=== PATIENT | male | born 1955 | race Caucasian/White ===

== ENCOUNTER 2018-07-30 08:06 | Inpatient (IN) | payer OTHER ==
[2018-07-30 08:40] LABS: CHLORIDE,CL 106 mEq/L (98-106); SODIUM,NA 144 mEq/L (136-145)
[2018-07-30] MEDS ORDERED: Iopamidol 755 Mg/ML 100 ML Bottle IVPUSH ONE (09:34)
[2018-07-30] MEDS ORDERED: Magnesium Hydroxide 400 MG/5 ML Susp 30 ML Cup PO PRN (13:19)
[2018-07-30] MEDS ORDERED: Albuterol/Ipratropium 3.0-0.5 MG/3 ML Neb Soln NEB PRN (13:19)
[2018-07-30] MEDS ORDERED: Temazepam 15 MG Cap PO PRN (13:19)
[2018-07-30] MEDS ORDERED: Acetaminophen 325 MG Tab PO PRN (13:19)
[2018-07-30] MEDS ORDERED: methylPREDNISolone Sodium Succinate 125 MG/2 ML SDV IVPUSH SCH (14:30)
[2018-07-30] MEDS: Sodium Chloride 0.9% 1,000 ML IV SCH (15:13)
[2018-07-30] MEDS: Enoxaparin 40 MG/0.4 ML Syringe SUBCUT SCH (15:14)
[2018-07-30] MEDS: methylPREDNISolone Sodium Succinate 125 MG/2 ML SDV IVPUSH SCH (15:53)
[2018-07-30] MEDS: Famotidine 20 MG Tab PO SCH (19:31)
[2018-07-31] MEDS: Sodium Chloride 0.9% 1,000 ML IV SCH ×2 (04:28→16:12)
[2018-07-31] MEDS: Aspirin 81 MG Tab.EC PO SCH (07:21)
[2018-07-31] MEDS: Famotidine 20 MG Tab PO SCH ×2 (07:21→19:45)
[2018-07-31] MEDS: Potassium Chloride 10 MEQ Tab.ER PO SCH (07:21)
[2018-07-31] MEDS: Naproxen 500 MG Tab PO SCH (07:22)
[2018-07-31 09:09] LABS: CHLORIDE,CL 109 mEq/L (98-106); SODIUM,NA 143 mEq/L (136-145)
--- NOTE | 2018-07-31 09:48 | PCM.PN ---
- General Info Date of Service: 07/31/18 Admission Dx/Problem (Free Text): Hypotension Functional Status: Reports: Pain Controlled, Ambulating. Denies: Tolerating Diet - Review of Systems General: Reports: Weakness, Fatigue, Malaise. Denies: Fever HEENT: Reports: No Symptoms Pulmonary: Reports: Cough. Denies: Shortness of Breath, Wheezing Cardiovascular: Denies: Chest Pain, Edema, Lightheadedness Gastrointestinal: Denies: Abdominal Pain, Nausea, Vomiting Genitourinary: Reports: No Symptoms Musculoskeletal: Reports: No Symptoms Skin: Reports: No Symptoms Neurological: Reports: Weakness. Denies: Dizziness, Syncope - Patient Data Vitals - Most Recent: Last Vital Signs Temp 96.6 F 07/31/18 07:28 Pulse 68 07/31/18 07:28 Resp 18 07/31/18 07:28 BP 118/78 07/31/18 07:28 Pulse Ox 97 07/31/18 07:28 Weight - Most Recent: 203 lb 11.2 oz I&O - Last 24 Hours: Intake & Output 07/30/18 07/31/18 07/31/18 22:59 06:59 14:59 Intake Total 994 Balance 994 Lab Results Last 24 Hours: Laboratory Results - last 24 hr 07/31/18 07/31/18 Range/Units 08:45 08:45 WBC 7.5 (5.0-10.0) 10^3/uL RBC 4.59 (4.50-6.00) 10^6/uL Hgb 14.1 (14.0-18.0) g/dL Hct 41.3 (40.0-54.0) % MCV 90.0 (82.0-94.0) fL MCH 30.7 (27.0-32.0) pg MCHC 34.1 (33.0-38.0) g/dL RDW Coeff of Abel 13.1 (11.0-15.0) % Plt Count 126 L (150-400) 10^3/uL Neut % (Auto) 87.6 H (35-85) % Lymph % (Auto) 7.9 L (10-55) % [place] % (Auto) 4.3 (0-16) % Eos % (Auto) 0.1 (0-5) % Baso % (Auto) 0.1 (0-3) % Neut # (Auto) 6.54 (1.80-7.00) 10^3/uL Lymph # (Auto) 0.59 L (1.00-4.80) 10^3/uL [place] # (Auto) 0.32 (0.00-0.80) 10^3/uL Eos # (Auto) 0.01 (0.00-0.45) 10^3/uL Baso # (Auto) 0.01 10^3/uL Sodium 143 (136-145) mEq/L Potassium 4.2 D (3.5-5.0) mEq/L Chloride 109 H (98-106) mEq/L Carbon Dioxide 24 (21-32) mmol/L BUN 27 H (7-18) mg/dL Creatinine 1.1 (0.7-1.3) mg/dL Est Cr Clr Drug Dosing 75.11 mL/min Estimated GFR (MDRD) > 60 (>=60) mL/min Glucose 122 H (75-99) mg/dL Calcium 8.6 (8.4-10.1) mg/dL C-Reactive Protein 4.7 H (0.2-0.8) mg/dL Kaz Results Last 24 Hours: Microbiology 07/30/18 08:12 Influenza Type A Antigen Screen - Final Nasal, Unspecified NEGATIVE INFLUENZA A VIRUS AG Influenza Type B Antigen Screen - Final NEGATIVE INFLUENZA B VIRUS AG Med Orders - Current: Current Medications Acetaminophen (Tylenol) 650 mg PO Q4H PRN PRN Reason: Mild pain/fever Albuterol/Ipratropium (Duoneb 3.0-0.5 Mg/3 Ml) 3 ml NEB Q4H PRN PRN Reason: Shortness Of Breath/wheezing Aspirin (Halfprin) 81 mg PO DAILY [facility] Last Admin: 07/31/18 07:21 Dose: 81 mg Enoxaparin Sodium (Lovenox) 40 mg SUBCUT DAILY@1600 [facility] Last Admin: 07/30/18 15:14 Dose: 40 mg Famotidine (Pepcid) 20 mg PO BID [facility] Last Admin: 07/31/18 07:21 Dose: 20 mg Sodium Chloride (Normal Saline) 1,000 mls @ 75 mls/hr IV ASDIRECTED [facility] Last Admin: 07/31/18 04:28 Dose: 75 mls/hr Magnesium Hydroxide (Milk Of Magnesia) 30 ml PO Q12H PRN PRN Reason: Constipation Methylprednisolone Sodium Succinate (Solu-Medrol) 62.5 mg IVPUSH DAILY@1200 [facility] Last Admin: 07/30/18 15:53 Dose: 62.5 mg Naproxen (Naprosyn) 500 mg PO DAILY [facility] Last Admin: 07/31/18 07:22 Dose: 500 mg Potassium Chloride (Klor-Con 10) 20 meq PO DAILY [facility] Last Admin: 07/31/18 07:21 Dose: 20 meq Temazepam (Restoril) 15 mg PO BEDTIME PRN PRN Reason: Sleep Discontinued Medications Iopamidol (Isovue-370 (76%)) 100 ml IVPUSH ONETIME ONE Stop: 07/30/18 09:35 Last Admin: 07/30/18 10:16 Dose: 100 ml Methylprednisolone Sodium Succinate (Solu-Medrol) 62.5 mg IVPUSH 0800,1600 [facility] Last Admin: 07/30/18 14:59 Dose: Not Given - Exam General: Alert, Oriented HEENT: Mucous Membr. Moist/[place] Neck: Supple Lungs: Clear to Auscultation, Normal Respiratory Effort Cardiovascular: Regular Rate, Regular Rhythm GI/Abdominal Exam: Normal Bowel Sounds, Soft, Non-Tender Extremities: Normal Inspection, No Pedal Edema Skin: Warm, Dry Neurological: No New Focal Deficit - Problem List & Annotations (1) Hypotension SNOMED Code(s): 47693061 Code(s): I95.9 - HYPOTENSION, UNSPECIFIED Status: Acute Priority: High Current Visit: Yes - Problem List Review Problem List Initiated/Reviewed/Updated: Yes - Assessment Assessment:: Hypotension Cough - Plan Plan:: Patient states "feel no different today". Continues to complain of generalized malaise and weakness. Does admit that the cough has improved with the steroids. Blood pressure is normal today but all meds have been on hold. States has no appetite, ate none of his breakfast. Labs are all improved, potassium up to 4.2 today. CRP improved down to 4.7. Advised would discuss all blood pressure meds with Dr. Brown as currently takes 5 different meds and his blood pressure was very low yesterday. Patient refuses this and states "we will not discuss those or do anything with those here, will address with Dr. Mireles on his discharge". Will continue to watch his pressures today. Possible discharge home tomorrow.
[2018-07-31] MEDS: methylPREDNISolone Sodium Succinate 125 MG/2 ML SDV IVPUSH SCH (11:57)
[2018-07-31] MEDS: Enoxaparin 40 MG/0.4 ML Syringe SUBCUT SCH (16:07)
[2018-08-01] MEDS: Sodium Chloride 0.9% 1,000 ML IV SCH (06:55)
[2018-08-01] MEDS: Naproxen 500 MG Tab PO SCH (07:50)
[2018-08-01] MEDS: Famotidine 20 MG Tab PO SCH (07:50)
[2018-08-01] MEDS: Aspirin 81 MG Tab.EC PO SCH (07:51)
[2018-08-01] MEDS: Potassium Chloride 10 MEQ Tab.ER PO SCH (07:51)
[2018-08-01] MEDS ORDERED: Atenolol 25 MG Tab PO SCH (08:45)
[2018-08-01] MEDS ORDERED: Hydrochlorothiazide/Triamterene 25-37.5 MG Cap PO SCH (08:45)
[2018-08-01] MEDS ORDERED: Losartan 100 MG Tab PO SCH (08:45)
[2018-08-01] MEDS: methylPREDNISolone Sodium Succinate 125 MG/2 ML SDV IVPUSH SCH (11:44)
[2018-08-01 11:46] VITALS: BP 135/84
--- NOTE | 2018-08-04 20:33 | PCM.DCSUM1 ---
Discharge Summary - Hospital Course Free Text/Narrative:: Patient presented to the clinic to see Iza for shortness of breath. Had been ill for over 2 weeks. Initially seen Smita Carrillo on July 15 and was placed on Ceftin. Stopped the medication as he felt it "knocked him out". He followed up with Dr. Mireles and was given injections of Depo Medrol and Rocephin and started on Levaquin. Thought he was getting better but for the last few days prior to admission, has felt more and more short of breath and weak. Blood pressure was noted to be low in the clinic. He is on 5 different blood pressure pills and relates that when he gets ill, his blood pressure drops and he will have to stop all of his medications. D-Dimer elevated at 2.01. CTA of chest done and was negative. CRP 9.0. WBC normal. Admitted for IV fluids. Blood pressure pills held. Diagnosis: Stroke: No Modified [place] Scale: No Symptoms at All Modified [place] Scale Score: 0 - Discharge Data Discharge Date: 08/02/18 Discharge Disposition: Home, Self-Care 01 Condition: Good - Discharge Diagnosis/Problem(s) (1) Hypotension SNOMED Code(s): 32679522 ICD Code: I95.9 - HYPOTENSION, UNSPECIFIED Status: Acute Priority: High - Patient Summary/Data Complications: none Hospital Course: Patient feeling somewhat better by discharge. Cough has improved. Still remains weak per patient but is ambulating in the halls and tolerating well. Blood pressure has crept up over the last 24 hours. Much discussion was held with patient by Dr. Brown in regards to maximizing his beta blocks, ibrahima inhibitors and diuretics and stopping his hydralazine and Verapamil and if needed. Restarted his Atenolol, Dyazide and Losartan yesterday, blood pressure 144/88 this am. Will need follow up of this in the next week with Dr. Mireles. labs have remained stable. - Patient Instructions Diet: Usual Diet as Tolerated Activity: As Tolerated - Discharge Plan *PRESCRIPTION DRUG MONITORING PROGRAM REVIEWED*: No *COPY OF PRESCRIPTION DRUG MONITORING REPORT IN PATIENT JORDANA: No Home Medications: Home Meds Aspirin [Low Dose Aspirin EC] 81 mg PO DAILY 11/25/13 [History] Atenolol [Tenormin] 25 mg PO DAILY 11/25/13 [History] Calcium Carb/Mag Ox/Zinc Gluc [Qsriwxi-Zsixvjczb-Sbsv] 2 tab PO DAILY 11/25/13 [ History] Cholecalciferol (Vitamin D3) [Vitamin D3] 5,000 unit PO DAILY 11/25/13 [History] Cimetidine [Tagamet] 400 mg PO BID 11/25/13 [History] Potassium Chloride 20 meq PO DAILY 11/25/13 [History] Ubidecarenone [Co Q-10] 100 mg PO DAILY 11/25/13 [History] Flaxseed Oil [Flax Oil] 1 cap PO DAILY 02/24/15 [History] Losartan [Cozaar] 100 mg PO DAILY 02/24/15 [History] Magnesium 1 tab PO BID 02/24/15 [History] Naproxen [Naprosyn] 1 tab PO DAILY 02/24/15 [History] Triamterene/Hydrochlorothiazid [Dyazide 37.5-25] 1 cap PO DAILY 02/24/15 [ History] Folic Acid 1 mg PO DAILY 07/30/18 [History] Patient Handouts: Hypotension Referrals: Bryant Mireles MD [Primary Care Provider] - (Follow up in one week with Dr. Mireles ) - Discharge Summary/Plan Comment DC Time >30 min.: No Discharge Summary/Plan Comment: Discharge home Continue Losartan, Dyazide and Atenolol. Hold Hydralazine and Verapamil for now. Follow up with Dr. Mireles in one week. - General Info Date of Service: 08/02/18 Admission Dx/Problem (Free Text: Hypotension Functional Status: Reports: Pain Controlled, Tolerating Diet, Ambulating - Review of Systems General: Reports: Weakness, Fatigue, Malaise HEENT: Reports: No Symptoms Pulmonary: Reports: Pleuritic Chest Pain. Denies: Shortness of Breath, Cough Cardiovascular: Denies: Chest Pain, Edema, Lightheadedness Gastrointestinal: Denies: Abdominal Pain, Nausea, Vomiting Genitourinary: Reports: No Symptoms Musculoskeletal: Reports: No Symptoms Skin: Reports: No Symptoms - Patient Data Vitals - Most Recent: Last Vital Signs Temp 96.8 F 08/01/18 11:46 Pulse 70 08/01/18 11:46 Resp 18 08/01/18 11:46 BP 135/84 08/01/18 11:46 Pulse Ox 98 08/01/18 11:46 Weight - Most Recent: 203 lb 11.2 oz Med Orders - Current: Current Medications Discontinued Medications Acetaminophen (Tylenol) 650 mg PO Q4H PRN PRN Reason: Mild pain/fever Albuterol/Ipratropium (Duoneb 3.0-0.5 Mg/3 Ml) 3 ml NEB Q4H PRN PRN Reason: Shortness Of Breath/wheezing Aspirin (Halfprin) 81 mg PO DAILY [facility] Last Admin: 08/01/18 07:51 Dose: 81 mg Atenolol (Tenormin) 25 mg PO DAILY [facility] Last Admin: 08/01/18 08:47 Dose: 25 mg Enoxaparin Sodium (Lovenox) 40 mg SUBCUT DAILY@1600 [facility] Last Admin: 07/31/18 16:07 Dose: 40 mg Famotidine (Pepcid) 20 mg PO BID [facility] Last Admin: 08/01/18 07:50 Dose: 20 mg Sodium Chloride (Normal Saline) 1,000 mls @ 75 mls/hr IV ASDIRECTED [facility] Last Admin: 08/01/18 06:55 Dose: 75 mls/hr Iopamidol (Isovue-370 (76%)) 100 ml IVPUSH ONETIME ONE Stop: 07/30/18 09:35 Last Admin: 07/30/18 10:16 Dose: 100 ml Losartan Potassium (Cozaar) 100 mg PO DAILY [facility] Last Admin: 08/01/18 08:47 Dose: 100 mg Magnesium Hydroxide (Milk Of Magnesia) 30 ml PO Q12H PRN PRN Reason: Constipation Methylprednisolone Sodium Succinate (Solu-Medrol) 62.5 mg IVPUSH 0800,1600 [facility] Last Admin: 07/30/18 14:59 Dose: Not Given Methylprednisolone Sodium Succinate (Solu-Medrol) 62.5 mg IVPUSH DAILY@1200 [facility] Last Admin: 08/01/18 11:44 Dose: 62.5 mg Naproxen (Naprosyn) 500 mg PO DAILY [facility] Last Admin: 08/01/18 07:50 Dose: 500 mg Potassium Chloride (Klor-Con 10) 20 meq PO DAILY [facility] Last Admin: 08/01/18 07:51 Dose: 20 meq Temazepam (Restoril) 15 mg PO BEDTIME PRN PRN Reason: Sleep Triamterene/HCTZ (Dyazide 25-37.5 Mg) 1 each PO DAILY [facility] Last Admin: 08/01/18 08:47 Dose: 1 each - Exam General: Reports: Alert, Oriented HEENT: Reports: Mucous Membr. Moist/[place] Neck: Reports: Supple Lungs: Reports: Clear to Auscultation, Normal Respiratory Effort Cardiovascular: Reports: Regular Rhythm GI/Abdominal Exam: Normal Bowel Sounds, Soft, Non-Tender Extremities: Normal Inspection, No Pedal Edema Skin: Reports: Warm, Dry Neurological: Reports: No New Focal Deficit
== END 2018-08-01 13:54 | disposition home or self-care (01) | DRG 312 ==
LOC: CC.CT 08:06 → CC.LAB 08:06 → CC.MS 11:32 → UNDOADMIN 11:32 → CC.MS 13:19
PROVIDERS: ADMIT Nurse Practitioner Family; ATTEND Family Medicine
DX: I95.2 Hypotension due to drugs (principal); I10 Essential (primary) hypertension; G47.30 Sleep apnea, unspecified; E78.5 Hyperlipidemia, unspecified; T46.5X5A Adverse effect of other antihypertensive drugs, initial encounter; R05 Cough; Z98.890 Other specified postprocedural states; Z88.8 Allergy status to other drugs, medicaments and biological substances; Z79.82 Long term (current) use of aspirin; Z79.899 Other long term (current) drug therapy; Z87.01 Personal history of pneumonia (recurrent); Z87.438 Personal history of other diseases of male genital organs
CPT/HCPCS: 36415; 71275; 80048; 80053; 83880; 84484; 85025; 85379; 86140; 87804; 93005; A9270-GY; J1650; J2930; J7030; Q9967

== ENCOUNTER 2019-08-13 13:59 | Observation (INO) | payer OTHER ==
[2019-08-13] MEDS ORDERED: Sodium Chloride 0.9% 10 ML Syringe FLUSH PRN (14:39)
[2019-08-13] MEDS: Enoxaparin 40 MG/0.4 ML Syringe SUBCUT SCH ×2 (17:46→17:49)
[2019-08-13] MEDS: Carvedilol 6.25 MG Tab **OWN MED PO SCH (17:46)
[2019-08-13] MEDS ORDERED: MAGNESIUM 250 MG PO SCH (20:00)
[2019-08-13] MEDS ORDERED: POTASSIUM CHLORIDE 20 MEQ PO SCH (20:00)
[2019-08-13] MEDS ORDERED: PRAVASTATIN 20 MG PO SCH (20:00)
[2019-08-14] MEDS ORDERED: OMEPRAZOLE 20 MG PO SCH (07:00)
[2019-08-14] MEDS ORDERED: LOSARTAN 100 MG PO SCH (08:00)
[2019-08-14] MEDS ORDERED: TRIAMTERENE PO SCH (08:00)
[2019-08-14] MEDS ORDERED: HYDROCHLOROTHIAZIDE PO SCH (08:00)
[2019-08-14] MEDS: Carvedilol 6.25 MG Tab **OWN MED PO SCH ×2 (08:03→08:25)
[2019-08-14 12:24] VITALS: BP 129/78; PULSE 97
--- NOTE | 2019-08-14 13:02 | PCM.DCSUM1 ---
Discharge Summary - Hospital Course Free Text/Narrative:: Jovanni is a 63 year old who presented to see Zan Carrillo in clinic due to feeling lightheaded and dizzy, tired. He had been to Dr. Mejía for follow up on his recent lumbar surgery and was noted to have blood pressure of 70/40 so they advised him to follow up with his PCP. Patient has had ongoing issues with his blood pressure, often more of an issue with hypertension. He relates over the last few days, concerned more with low BP and feeling symptomatic as a result. Lab work and EKG were unremarkable. Due to recent surgery and concerns with falls, patient was admitted with Norvasc being held. Cardiac monitoring and frequent blood pressure monitoring. Diagnosis: Stroke: No Modified [place] Scale: No Symptoms at All Modified [place] Scale Score: 0 - Discharge Data Discharge Date: 08/14/19 Discharge Disposition: Home, Self-Care 01 Condition: Good - Referral to Home Health Primary Care Physician: Loc Carrillo PA-C - Patient Summary/Data Complications: none Consults: Consultations 08/13/19 14:39 PT Evaluation and Treatment [CONS] Routine Hospital Course: Patient doing well. Feeling better than he has in days. Blood pressure has been stable at 113/79, 129/78. Denies chest pain, shortness of breath. Still feels a little weak when he gets up out of bed. Lumbar incision is healing well. No redness. clinical program director has been stable. Will continue to hold Norvasc until upcoming appointment with Iza next week. - Patient Instructions Diet: Usual Diet as Tolerated Activity: As Tolerated - Discharge Plan *PRESCRIPTION DRUG MONITORING PROGRAM REVIEWED*: No *COPY OF PRESCRIPTION DRUG MONITORING REPORT IN PATIENT JORDANA: No Home Medications: Home Meds Calcium Carb/Mag Ox/Zinc Gluc [Hlwhskb-Feszhowrt-Yunq] 1 tab PO BID 11/25/13 [ History] Potassium Chloride 40 meq PO QPM 11/25/13 [History] Ubidecarenone [Co Q-10] 100 mg PO QPM 11/25/13 [History] Flaxseed Oil [Flax Oil] 1 cap PO QPM 02/24/15 [History] Losartan [Cozaar] 100 mg PO DAILY 02/24/15 [History] Magnesium 250 tab PO BID 02/24/15 [History] Triamterene/Hydrochlorothiazid [Dyazide 37.5-25] 1 cap PO DAILY 02/24/15 [ History] Carvedilol 6.25 mg PO BID 08/13/19 [History] Omeprazole 20 mg PO DAILY 08/13/19 [History] Pravastatin [Pravachol] 20 mg PO DAILY 08/13/19 [History] Referrals: Iza Mcclain, [employer]TA[employer] DRIVER [ED Midlevel Provider] - (Follow up with Iza next week) - Discharge Summary/Plan Comment DC Time >30 min.: No - General Info Date of Service: 08/15/19 Admission Dx/Problem (Free Text: Hypotension Functional Status: Reports: Pain Controlled, Tolerating Diet, Ambulating - Review of Systems General: Reports: Weakness, Fatigue. Denies: Fever HEENT: Reports: No Symptoms Pulmonary: Denies: Shortness of Breath, Cough Cardiovascular: Denies: Chest Pain, Edema, Lightheadedness Gastrointestinal: Denies: Abdominal Pain, Nausea, Vomiting Genitourinary: Reports: No Symptoms Musculoskeletal: Reports: Back Pain Skin: Reports: No Symptoms Neurological: Reports: No Symptoms - Patient Data Vitals - Most Recent: Last Vital Signs Temp 98.1 F 08/14/19 10:00 Pulse 97 08/14/19 10:00 Resp 16 08/14/19 10:00 BP 129/78 08/14/19 10:00 Pulse Ox 97 08/14/19 10:00 Weight - Most Recent: 211 lb 11.2 oz Lab Results - Last 24 hrs: Laboratory Results - last 24 hr 08/13/19 08/13/19 08/13/19 Range/Units 14:39 15:05 15:05 WBC 8.2 (5.0-10.0) 10^3/uL RBC 4.13 L (4.50-6.00) 10^6/uL Hgb 12.2 L (14.0-18.0) g/dL Hct 36.6 L (40.0-54.0) % MCV 88.6 (82.0-94.0) fL MCH 29.5 (27.0-32.0) pg MCHC 33.3 (33.0-38.0) g/dL RDW Coeff of Abel 12.8 (11.0-15.0) % Plt Count 457 H (150-400) 10^3/uL Neut % (Auto) 77.2 (35-85) % Lymph % (Auto) 16.0 (10-55) % [place] % (Auto) 6.0 (0-16) % Eos % (Auto) 0.7 (0-5) % Baso % (Auto) 0.1 (0-3) % Neut # (Auto) 6.34 (1.80-7.00) 10^3/uL Lymph # (Auto) 1.31 (1.00-4.80) 10^3/uL [place] # (Auto) 0.49 (0.00-0.80) 10^3/uL Eos # (Auto) 0.06 (0.00-0.45) 10^3/uL Baso # (Auto) 0.01 10^3/uL Sodium 138 (136-145) mEq/L Potassium 4.2 (3.5-5.0) mEq/L Chloride 102 (98-106) mEq/L Carbon Dioxide 24 (21-32) mmol/L BUN 19 H D (7-18) mg/dL Creatinine 1.3 (0.7-1.3) mg/dL Est Cr Clr Drug Dosing 60.83 mL/min Estimated GFR (MDRD) 56 L (>=60) mL/min Glucose 107 H (75-99) mg/dL Calcium 9.7 (8.4-10.1) mg/dL Magnesium 2.1 (1.8-2.4) mg/dL Urine Color Yellow (YELLOW) Urine Appearance Clear (CLEAR) Urine pH 7.0 (4.5-8.0) Ur Specific [place] 1.010 (1.003-1.020) Urine Protein Negative (NEGATIVE) mg/dL Urine Glucose (UA) Negative (NEGATIVE) mg/dL Urine Ketones Negative (NEGATIVE) mg/dL Urine Occult Blood Negative (NEGATIVE) Urine Nitrite Negative (NEGATIVE) Urine Bilirubin Negative (NEGATIVE) Urine Urobilinogen 0.2 (0.2-1.0) EU/dL Ur Leukocyte Esterase Negative (NEGATIVE) Urine RBC Not seen (0-5) /HPF Urine WBC Not seen (0-5) /HPF Med Orders - Current: Current Medications Discontinued Medications Carvedilol (Coreg) 6.25 mg PO BIDMEALS [facility] Last Admin: 08/14/19 08:25 Dose: 6.25 mg Enoxaparin Sodium (Lovenox) 40 mg SUBCUT Q24H [facility] Last Admin: 08/13/19 17:49 Dose: Not Given Losartan Potassium (Cozaar) 100 mg PO DAILY [facility] Last Admin: 08/14/19 08:26 Dose: 100 mg Magnesium 250 Mg (Tabs Own Med) 0 tab PO BID [facility] Last Admin: 08/13/19 20:11 Dose: Not Given Omeprazole 20 Mg (Caps Own Med) 0 mg PO ACBRK [facility] Last Admin: 08/14/19 06:32 Dose: 20 mg Potassium Chloride 20 Meq Tabs Own Med 0 meq PO QPM [facility] Last Admin: 08/13/19 20:11 Dose: 40 meq Pravastatin ( Pravachol) 20 Mg Tabs Own Med 0 mg PO BEDTIME [facility] Last Admin: 08/13/19 20:12 Dose: 20 mg Sodium Chloride (Saline Flush) 10 ml FLUSH ASDIRECTED PRN PRN Reason: Keep Vein Open Triamterene/HCTZ (Dyazide 25-37.5 Mg) 1 each PO DAILY [facility] Last Admin: 08/14/19 08:26 Dose: 1 each - Exam General: Reports: Alert, Oriented HEENT: Reports: Pupils Equal, Pupils Reactive, Mucous Membr. Moist/[place] Neck: Reports: Supple Lungs: Reports: Clear to Auscultation, Normal Respiratory Effort Cardiovascular: Reports: Regular Rate, Regular Rhythm GI/Abdominal Exam: Normal Bowel Sounds, Soft, Non-Tender Back Exam: Reports: Vertebral Tenderness Extremities: Normal Inspection, No Pedal Edema Skin: Reports: Warm, Dry Wound/Incisions: Reports: Healing Well Neurological: Reports: No New Focal Deficit
== END 2019-08-14 11:05 | disposition home or self-care (01) ==
LOC: UNDOADMOB 13:59 → CC.MS 13:59
PROVIDERS: ADMIT Physician Assistant Medical; ATTEND Family Medicine
DX: I95.9 Hypotension, unspecified (principal); I12.9 Hypertensive chronic kidney disease with stage 1 through stage 4 chronic kidney disease, or unspecified chronic kidney disease; N18.9 Chronic kidney disease, unspecified; E78.00 Pure hypercholesterolemia, unspecified; J44.9 Chronic obstructive pulmonary disease, unspecified; K21.9 Gastro-esophageal reflux disease without esophagitis; G47.30 Sleep apnea, unspecified; M19.90 Unspecified osteoarthritis, unspecified site; Z88.8 Allergy status to other drugs, medicaments and biological substances; Z79.899 Other long term (current) drug therapy
CPT/HCPCS: 36415; 80048; 81001; 83735; 85025; 93005; A9270-GY; G0378; J1650

== ENCOUNTER 2024-11-13 13:34 | Emergency (ER) | payer MEDICARE, OTHER ==
[2024-11-13 13:50] LABS: BASOPHILS ABSOLUTE AUTO 0.01 10^3/uL (0.00-0.50); BASOPHILS PERCENT AUTO 0.1 % (0-1); EOSINOPHILS ABSOLUTE AUTO 0.11 10^3/uL (0.00-1.50); EOSINOPHILS PERCENT AUTO 1.6 % (0-6); HEMATOCRIT 48.2 % (42.0-52.0); HEMOGLOBIN 16.3 g/dL (14.0-18.0); IMMATURE GRAN ABSOLUTE AUTO 0.02 10^3/uL (0.00-0.49); IMMATURE GRAN PERCENT AUTO 0.3 % (0.0-4.9); LYMPHOCYTES ABSOLUTE AUTO 2.14 10^3/uL (0.60-5.00); LYMPHOCYTES PERCENT AUTO 31.7 % (24-44); MEAN CORPUSCULAR HEMOGLOBIN 30.4 pg (27.0-32.0); MEAN CORPUSCULAR HGB CONC 33.8 g/dL (32.0-36.0); MEAN CORPUSCULAR VOLUME 89.8 fL (83.0-97.0); MONOCYTES ABSOLUTE AUTO 0.51 10^3/uL (0.00-1.50); MONOCYTES PERCENT AUTO 7.6 % (0-10); NEUTROPHILS ABSOLUTE AUTO 3.96 x10^3/uL (1.80-8.00); NEUTROPHILS PERCENT AUTO 58.7 % (41-71); PLATELET COUNT,PLT 181 10^3/uL (150-400); RED BLOOD CELL COUNT 5.37 x10^6/uL (4.50-6.00); WHITE BLOOD CELL COUNT,WBC 6.8 10^3/uL (4.0-11.0)
[2024-11-13 14:11] LABS: INR 1.09 (0.92-1.18); PROTHROMBIN TIME 11.4 SEC (9.3-11.3); PTT,PARTIAL THROMBOPLSTIN TIME 24.7 SEC (20.0-30.0)
[2024-11-13] MEDS: Nitroglycerin 0.4 MG Tab.SL SL ONE (14:15)
[2024-11-13 14:24] VITALS: BP 143/99
[2024-11-13 14:33] VITALS: PULSE 73
[2024-11-13 15:02] LABS: ALBUMIN 3.9 g/dL (3.4-5.0); BILIRUBIN TOTAL 0.8 mg/dL (0.0-1.0); CALCIUM 9.3 mg/dL (8.4-10.1); CREATININE 1.2 mg/dL (0.7-1.3); EST CRCL DRUG DOSING (CG) 60.83 mL/min; POTASSIUM,K 3.5 mEq/L (3.5-5.0); PROTEIN TOTAL,TP 7.1 g/dL (6.4-8.2)
== END 2024-11-13 15:20 | disposition home or self-care (01) ==
LOC: CC.ED 13:34
DX: R07.89 Other chest pain (principal); Z90.49 Acquired absence of other specified parts of digestive tract; Z88.8 Allergy status to other drugs, medicaments and biological substances; Z79.899 Other long term (current) drug therapy
CPT/HCPCS: 36415; 71046; 80053; 82550; 83615; 83690; 84484; 85025; 85610; 85730; 93005; 99285; A9270-GY